=== PATIENT | male | born 1970 | race American Indian/Alaskan Native ===

== ENCOUNTER 2018-01-31 10:12 | Emergency (ER) | payer MEDICARE ==
[2018-01-31] MEDS ORDERED: ZOFRAN IV ONE (12:09)
[2018-01-31] MEDS ORDERED: PEPCID IV ONE (12:09)
[2018-01-31] MEDS ORDERED: TORADOL IV ONE (12:09)
[2018-01-31] MEDS ORDERED: BENTYL IM ONE (12:09)
[2018-01-31] MEDS ORDERED: NACL 0.9% 1000 ML 1,000 ML IV ONE ×2 (12:09→19:01)
--- NOTE | 2018-01-31 12:09 | Emergency Department Report ---
Blank Doc - Documentation Documentation: Patient is a 47-year-old Greek male with past medical history diabetes who is presenting with nausea vomiting and diarrhea for approximately 2 weeks. Patient states he has some crampy diffuse abdominal pain as well. Patient denies any blood in his vomit or stool. Patient denies fever. Patient does state he has some mild dizziness when he stands. Patient be sent treatment room for IV fluids. Labs redrawn and the patient will be sent for CT to rule out surgical conditions. To
--- NOTE | 2018-01-31 12:23 | Emergency Department Report ---
<AMADA BRADFORD - Last Filed: 01/31/18 21:58> ED Abdominal Pain HPI - General Chief Complaint: Abdominal Pain Stated Complaint: STOMACH PAIN Time Seen by Provider: 01/31/18 11:57 - Related Data Previous Rx's Medication Instructions Recorded Last Taken Type Dicyclomine [Bentyl] 20 mg PO Q8H 3 Days #12 tablet 01/31/18 Unknown Rx Famotidine [Pepcid] 20 mg PO BID 7 Days #14 tablet 01/31/18 Unknown Rx Ondansetron [Zofran Odt] 4 mg PO Q8H PRN #15 tab.rapdis 01/31/18 Unknown Rx Allergies Allergy/AdvReac Type Severity Reaction Status Date / Time No Known Allergies Allergy Unverified 01/31/18 10:19 ED Review of Systems ROS: Stated complaint: STOMACH PAIN Other details as noted in HPI ED Past Medical Hx - Medications Home Medications: Home Medications Medication Instructions Recorded Confirmed Last Taken Type Dicyclomine [Bentyl] 20 mg PO Q8H 3 Days #12 tablet 01/31/18 Unknown Rx Famotidine [Pepcid] 20 mg PO BID 7 Days #14 tablet 01/31/18 Unknown Rx Ondansetron [Zofran Odt] 4 mg PO Q8H PRN #15 tab.rapdis 01/31/18 Unknown Rx ED Course Vital Signs 01/31/18 01/31/18 01/31/18 10:20 17:04 22:00 Temperature 98 F 97.6 F Pulse Rate 112 H 67 88 Respiratory 20 16 18 Rate Blood Pressure 123/92 Blood Pressure 121/87 [Left] O2 Sat by Pulse 97 100 98 Oximetry - Reevaluation(s) Reevaluation #5: 01/31/18 21:58 Patient's labs have come back with a potassium 3.9 and a magnesium of 2.7. Patient is completed his IV fluids. Patient's vital signs are within normal limits. Will discharge patient home with follow-up to his primary care provider. Patient verbalized understanding. 01/31/18 21:58 ED Medical Decision Making - Lab Data Result diagrams: 01/31/18 12:29 01/31/18 20:36 Critical care attestation.: If time is entered above; I have spent that time in minutes in the direct care of this critically ill patient, excluding procedure time. ED Disposition Clinical Impression: Enteritis, Fatty liver, Diverticulosis of colon, Serum lipase elevation, Nausea , vomiting and diarrhea, Hyperglycemia without ketosis, Sinus tachycardia, Hyperkalemia, Hypomagnesemia Abdominal pain Qualifiers: Abdominal location: unspecified location Qualified Code(s): R10.9 - Unspecified abdominal pain Disposition: DC-01 TO HOME OR SELFCARE Condition: Stable Instructions: Diverticulosis (ED), Gastroenteritis (ED), Hyperkalemia (ED), Acute Nausea and Vomiting (ED), Acute Diarrhea (ED), Diverticulosis Diet (ED), Abdominal Pain (ED), Hypomagnesemia (ED), Nutrition Tips for Relief of Diarrhea (ED), Diabetic Hyperglycemia (ED) Additional Instructions: Please follow up with the primary care physician tomorrow Follow-up with toll operator regarding in nausea vomiting and diarrhea 2 weeks, fatty liver, diverticulosis and elevated lipase level. Over the next 72 hours, followed diet to include banana, rice, applesauce and toast Take medication as prescribed for nausea and for stomach cramping. If symptoms return, return to the emergency room NISHA Prescriptions: Dicyclomine [Bentyl] 20 mg PO Q8H 3 Days #12 tablet Famotidine [Pepcid] 20 mg PO BID 7 Days #14 tablet Ondansetron [Zofran Odt] 4 mg PO Q8H PRN #15 tab.rapdis PRN Reason: Nausea And Vomiting Referrals: PRIMARY CAREMD [Primary Care Provider] - 02/01/18 [facility] [Provider Group] - 02/02/18 [facility] [Outside] - 02/01/18 Forms: Work/School Release Form(ED) <ADOLPH FELIX - Last Filed: 02/01/18 20:18> ED Abdominal Pain HPI - General Source: patient, family, EMS Mode of arrival: Ambulatory Limitations: No Limitations - History of Present Illness Initial Comments: Patient is a 47-year-old Qat[place] male with past medical history diabetes who is presenting with nausea vomiting and diarrhea for approximately 2 weeks. Patient states he has some crampy diffuse abdominal pain as well. Patient denies any blood in his vomit or stool. Patient denies fever. Patient does state he has some mild dizziness when he stands. MD Complaint: abdominal pain Onset/Timin -: Gradual Location: diffuse Radiation: none Migration to: no migration Severity: severe Severity scale (0 -10): 7 Quality: cramping Consistency: intermittent Improves With: nothing Worsens With: nothing Context: other (unknown) Associated Symptoms: nausea, vomiting, diarrhea. denies: fever, dysuria, hematemesis, hematochezia, melena, hematuria, anorexia, syncope Treatments Prior to Arrival: other (none) ED Review of Systems Constitutional: denies: chills, fever Eyes: vision change. denies: eye pain, eye discharge ENT: denies: throat pain, congestion Respiratory: denies: cough, shortness of breath, SOB with exertion, SOB at rest , stridor, wheezing Cardiovascular: denies: chest pain, palpitations, dyspnea on exertion, edema, syncope Gastrointestinal: abdominal pain, nausea, vomiting, diarrhea. denies: constipation, hematemesis, melena, hematochezia Genitourinary: denies: urgency, dysuria, frequency, hematuria, discharge Musculoskeletal: denies: back pain, joint swelling, arthralgia Skin: denies: rash, lesions Neurological: denies: headache, weakness, numbness, paresthesias, abnormal gait , vertigo ED Past Medical Hx - Past Medical History Previous Medical History?: Yes Hx Hypertension: Yes Hx Diabetes: Yes - Surgical History Past Surgical History?: No - Family History Family history: no significant - Social History Smoking Status: Current Every Day Smoker Substance Use Type: None ED Physical Exam - General Limitations: No Limitations General appearance: alert, in no apparent distress - Head Head exam: Present: atraumatic, normocephalic, normal inspection - Eye Eye exam: Present: normal appearance, PERRL, EOMI Pupils: Present: normal accommodation - ENT ENT exam: Present: normal exam, normal orophraynx, mucous membranes moist, TM's normal bilaterally, normal external ear exam - Neck Neck exam: Present: normal inspection, full ROM. Absent: tenderness, lymphadenopathy - Respiratory Respiratory exam: Present: normal lung sounds bilaterally. Absent: respiratory distress, chest wall tenderness, accessory muscle use - Cardiovascular Cardiovascular Exam: Present: regular rate, normal rhythm. Absent: systolic murmur, diastolic murmur, rubs, gallop - GI/Abdominal GI/Abdominal exam: Present: soft, normal bowel sounds. Absent: distended, tenderness, guarding, rebound, rigid, organomegaly, mass, bruit, pulsatile mass , hernia - Extremities Exam Extremities exam: Present: normal inspection, full ROM, normal capillary refill , other (no clubbing, cyanosis or edema. +2 pulses to all extremities and no neurovascular compromise). Absent: tenderness, pedal edema, joint swelling, calf tenderness - Back Exam Back exam: Present: normal inspection, full ROM, other (ambulates without any difficulties). Absent: tenderness, CVA tenderness (R), CVA tenderness (L), muscle spasm, paraspinal tenderness, vertebral tenderness, rash noted - Neurological Exam Neurological exam: Present: alert, oriented X3, normal gait, reflexes normal. Absent: motor sensory deficit - Psychiatric Psychiatric exam: Present: normal affect, normal mood - Skin Skin exam: Present: warm, dry, intact, normal color. Absent: rash ED Course Vital Signs 01/31/18 01/31/18 01/31/18 10:20 17:04 22:00 Temperature 98 F 97.6 F Pulse Rate 112 H 67 88 Respiratory 20 16 18 Rate Blood Pressure 123/92 Blood Pressure 121/87 [Left] O2 Sat by Pulse 97 100 98 Oximetry Vital Signs 01/31/18 01/31/18 10:20 17:04 Temperature 98 F 97.6 F Pulse Rate 112 H 67 Respiratory 20 16 Rate Blood Pressure 123/92 Blood Pressure 121/87 [Left] O2 Sat by Pulse 97 100 Oximetry Vital Signs 01/31/18 01/31/18 01/31/18 10:20 17:04 22:00 Temperature 98 F 97.6 F Pulse Rate 112 H 67 88 Respiratory 20 16 18 Rate Blood Pressure 123/92 Blood Pressure 121/87 [Left] O2 Sat by Pulse 97 100 98 Oximetry - Reevaluation(s) Reevaluation #1: 01/31/18 13:49 Patient received and normal saline IV fluid 1 L, Zofran 4 mg IV and Bentyl 20 mg IM and Toradol 30 mg IV. He is also to receive regular insulin 5 units IV for blood glucose. Reevaluation #2: 01/31/18 17:06 Patient blood sugar is 258 after 5 units of regular insulin. Patient had just ate a snack prior to blood pressure being taken. He was also drinking juice. Patient reports that his abdominal pain is better and he has no nausea or vomiting. No diarrhea in emergency room. He is able to tolerate oral liquids without any difficulties. Reevaluation #3: 01/31/18 17:59 Potassium is 5.6 and receive Kayexalate and magnesium ordered Reevaluation #4: 01/31/18 19:02 Patient magnesium is 1.3 and potassium is 5.6. Kayexalate given. Patient repleted with magnesium sulfate 2 g IV infusing at present and normal saline 1 L and this will be the second liter. ED Medical Decision Making - Lab Data Result diagrams: 01/31/18 12:29 01/31/18 20:36 Lab Results 01/31/18 01/31/18 01/31/18 Range/Units 12:20 12:29 12:29 WBC 11.4 H (4.5-11.0) K/mm3 RBC 4.97 (3.65-5.03) M/mm3 Hgb 14.7 (11.8-15.2) gm/dl Hct 43.5 (35.5-45.6) % MCV 88 (84-94) fl MCH 30 (28-32) pg MCHC 34 (32-34) % RDW 13.9 (13.2-15.2) % Plt Count 195 (140-440) K/mm3 Lymph % (Auto) 20.4 (13.4-35.0) % Stephens % (Auto) 4.7 (0.0-7.3) % Eos % (Auto) 1.5 (0.0-4.3) % Baso % (Auto) 0.2 (0.0-1.8) % Lymph # 2.3 (1.2-5.4) K/mm3 Stephens # 0.5 (0.0-0.8) K/mm3 Eos # 0.2 (0.0-0.4) K/mm3 Baso # 0.0 (0.0-0.1) K/mm3 Seg Neutrophils % 73.2 H (40.0-70.0) % Seg Neutrophils # 8.3 H (1.8-7.7) K/mm3 Sodium 138 (137-145) mmol/L Potassium 5.6 H (3.6-5.0) mmol/L Chloride 103.1 (98-107) mmol/L Carbon Dioxide 20 L (22-30) mmol/L Anion Gap 21 mmol/L BUN 28 H (9-20) mg/dL Creatinine 1.2 (0.8-1.5) mg/dL Estimated GFR > 60 ml/min BUN/Creatinine Ratio 23 % Glucose 342 H (75-100) mg/dL Calcium 7.4 L (8.4-10.2) mg/dL Total Bilirubin 0.40 (0.1-1.2) mg/dL AST 23 (5-40) units/L ALT 8 (7-56) units/L Alkaline Phosphatase 82 (35-129) units/L Total Protein 5.8 L (6.3-8.2) g/dL Albumin 3.3 L (3.9-5) g/dL Albumin/Globulin Ratio 1.3 % Lipase 70 H (13-60) units/L Urine Color Yellow (Yellow) Urine Turbidity Clear (Clear) Urine pH 5.0 (5.0-7.0) Ur Specific [place] 1.014 (1.003-1.030) Urine Protein <15 mg/dl (Negative) mg/dL Urine Glucose (UA) >=500 (Negative) mg/dL Urine Ketones Neg (Negative) mg/dL Urine Blood Neg (Negative) Urine Nitrite Neg (Negative) Urine Bilirubin Neg (Negative) Urine Urobilinogen < 2.0 (<2.0) mg/dL Ur Leukocyte Esterase Neg (Negative) Urine WBC (Auto) 1.0 (0.0-6.0) /HPF Urine RBC (Auto) 2.0 (0.0-6.0) /HPF Urine Mucus Few /HPF Lab Results 01/31/18 01/31/18 01/31/18 Range/Units 12:20 12:29 12:29 WBC 11.4 H (4.5-11.0) K/mm3 RBC 4.97 (3.65-5.03) M/mm3 Hgb 14.7 (11.8-15.2) gm/dl Hct 43.5 (35.5-45.6) % MCV 88 (84-94) fl MCH 30 (28-32) pg MCHC 34 (32-34) % RDW 13.9 (13.2-15.2) % Plt Count 195 (140-440) K/mm3 Lymph % (Auto) 20.4 (13.4-35.0) % Stephens % (Auto) 4.7 (0.0-7.3) % Eos % (Auto) 1.5 (0.0-4.3) % Baso % (Auto) 0.2 (0.0-1.8) % Lymph # 2.3 (1.2-5.4) K/mm3 Stephens # 0.5 (0.0-0.8) K/mm3 Eos # 0.2 (0.0-0.4) K/mm3 Baso # 0.0 (0.0-0.1) K/mm3 Seg Neutrophils % 73.2 H (40.0-70.0) % Seg Neutrophils # 8.3 H (1.8-7.7) K/mm3 Sodium 138 (137-145) mmol/L Potassium 5.6 H (3.6-5.0) mmol/L Chloride 103.1 (98-107) mmol/L Carbon Dioxide 20 L (22-30) mmol/L Anion Gap 21 mmol/L BUN 28 H (9-20) mg/dL Creatinine 1.2 (0.8-1.5) mg/dL Estimated GFR > 60 ml/min BUN/Creatinine Ratio 23 % Glucose 342 H (75-100) mg/dL POC Glucose (70-105) Calcium 7.4 L (8.4-10.2) mg/dL Magnesium (1.7-2.3) mg/dL Total Bilirubin 0.40 (0.1-1.2) mg/dL AST 23 (5-40) units/L ALT 8 (7-56) units/L Alkaline Phosphatase 82 (35-129) units/L Total Protein 5.8 L (6.3-8.2) g/dL Albumin 3.3 L (3.9-5) g/dL Albumin/Globulin Ratio 1.3 % Lipase 70 H (13-60) units/L Urine Color Yellow (Yellow) Urine Turbidity Clear (Clear) Urine pH 5.0 (5.0-7.0) Ur Specific [place] 1.014 (1.003-1.030) Urine Protein <15 mg/dl (Negative) mg/dL Urine Glucose (UA) >=500 (Negative) mg/dL Urine Ketones Neg (Negative) mg/dL Urine Blood Neg (Negative) Urine Nitrite Neg (Negative) Urine Bilirubin Neg (Negative) Urine Urobilinogen < 2.0 (<2.0) mg/dL Ur Leukocyte Esterase Neg (Negative) Urine WBC (Auto) 1.0 (0.0-6.0) /HPF Urine RBC (Auto) 2.0 (0.0-6.0) /HPF Urine Mucus Few /HPF 01/31/18 01/31/18 01/31/18 Range/Units 14:38 17:04 17:43 WBC (4.5-11.0) K/mm3 RBC (3.65-5.03) M/mm3 Hgb (11.8-15.2) gm/dl Hct (35.5-45.6) % MCV (84-94) fl MCH (28-32) pg MCHC (32-34) % RDW (13.2-15.2) % Plt Count (140-440) K/mm3 Lymph % (Auto) (13.4-35.0) % Stephens % (Auto) (0.0-7.3) % Eos % (Auto) (0.0-4.3) % Baso % (Auto) (0.0-1.8) % Lymph # (1.2-5.4) K/mm3 Stephens # (0.0-0.8) K/mm3 Eos # (0.0-0.4) K/mm3 Baso # (0.0-0.1) K/mm3 Seg Neutrophils % (40.0-70.0) % Seg Neutrophils # (1.8-7.7) K/mm3 Sodium (137-145) mmol/L Potassium (3.6-5.0) mmol/L Chloride (98-107) mmol/L Carbon Dioxide (22-30) mmol/L Anion Gap mmol/L BUN (9-20) mg/dL Creatinine (0.8-1.5) mg/dL Estimated GFR ml/min BUN/Creatinine Ratio % Glucose (75-100) mg/dL POC Glucose 392 H 258 H (70-105) Calcium (8.4-10.2) mg/dL Magnesium 1.30 L (1.7-2.3) mg/dL Total Bilirubin (0.1-1.2) mg/dL AST (5-40) units/L ALT (7-56) units/L Alkaline Phosphatase (35-129) units/L Total Protein (6.3-8.2) g/dL Albumin (3.9-5) g/dL Albumin/Globulin Ratio % Lipase (13-60) units/L Urine Color (Yellow) Urine Turbidity (Clear) Urine pH (5.0-7.0) Ur Specific [place] (1.003-1.030) Urine Protein (Negative) mg/dL Urine Glucose (UA) (Negative) mg/dL Urine Ketones (Negative) mg/dL Urine Blood (Negative) Urine Nitrite (Negative) Urine Bilirubin (Negative) Urine Urobilinogen (<2.0) mg/dL Ur Leukocyte Esterase (Negative) Urine WBC (Auto) (0.0-6.0) /HPF Urine RBC (Auto) (0.0-6.0) /HPF Urine Mucus /HPF 01/31/18 Range/Units 20:36 WBC (4.5-11.0) K/mm3 RBC (3.65-5.03) M/mm3 Hgb (11.8-15.2) gm/dl Hct (35.5-45.6) % MCV (84-94) fl MCH (28-32) pg MCHC (32-34) % RDW (13.2-15.2) % Plt Count (140-440) K/mm3 Lymph % (Auto) (13.4-35.0) % Stephens % (Auto) (0.0-7.3) % Eos % (Auto) (0.0-4.3) % Baso % (Auto) (0.0-1.8) % Lymph # (1.2-5.4) K/mm3 Stephens # (0.0-0.8) K/mm3 Eos # (0.0-0.4) K/mm3 Baso # (0.0-0.1) K/mm3 Seg Neutrophils % (40.0-70.0) % Seg Neutrophils # (1.8-7.7) K/mm3 Sodium (137-145) mmol/L Potassium 3.9 D (3.6-5.0) mmol/L Chloride (98-107) mmol/L Carbon Dioxide (22-30) mmol/L Anion Gap mmol/L BUN (9-20) mg/dL Creatinine (0.8-1.5) mg/dL Estimated GFR ml/min BUN/Creatinine Ratio % Glucose (75-100) mg/dL POC Glucose (70-105) Calcium (8.4-10.2) mg/dL Magnesium 2.20 (1.7-2.3) mg/dL Total Bilirubin (0.1-1.2) mg/dL AST (5-40) units/L ALT (7-56) units/L Alkaline Phosphatase (35-129) units/L Total Protein (6.3-8.2) g/dL Albumin (3.9-5) g/dL Albumin/Globulin Ratio % Lipase (13-60) units/L Urine Color (Yellow) Urine Turbidity (Clear) Urine pH (5.0-7.0) Ur Specific [place] (1.003-1.030) Urine Protein (Negative) mg/dL Urine Glucose (UA) (Negative) mg/dL Urine Ketones (Negative) mg/dL Urine Blood (Negative) Urine Nitrite (Negative) Urine Bilirubin (Negative) Urine Urobilinogen (<2.0) mg/dL Ur Leukocyte Esterase (Negative) Urine WBC (Auto) (0.0-6.0) /HPF Urine RBC (Auto) (0.0-6.0) /HPF Urine Mucus /HPF - EKG Data -: EKG Interpreted by Me (attending physician) EKG shows normal: sinus rhythm Rate: normal (90 bpm) - EKG Data When compared to previous EKG there are: no significant change Interpretation: no acute changes, normal EKG - Radiology Data Radiology results: report reviewed CT scan of the abdomen and pelvis with IV contrast dictated by radiologist and report reviewed by myself. Shows diverticulosis, fatty liver and enteritis Patient: LAURA ABDI MR#: [id number] : 1970 Acct:[id number] Age/Sex: 47 / M ADM Date: 01/31/18 Loc: ED Attending Dr: Ordering Physician: SINGH TEJEDA MD Date of Service: 01/31/18 Procedure(s): CT abdomen pelvis w con Accession Number(s): [id number] cc: SINGH TEJEDA MD FINAL REPORT EXAM: CT ABDOMEN PELVIS W CON HISTORY: diffuse abd pain NVD TECHNIQUE: Spiral CT scanning of the abdomen and pelvis after the uneventful administration of IV contrast. Multiplanar reformations. 100 mL Omnipaque IV. PRIORS: None. FINDINGS: Abdomen: Visualized lung bases grossly unremarkable. No radiopaque gallstones. Liver shows diffusely decreased attenuation without focal abnormality. Spleen without significant abnormality. Pancreas without significant abnormality. Kidneys without significant abnormality. Right adrenal gland without significant abnormality. Left adrenal nodule measuring approximately 1 cm compatible with adenomatous change. Pelvis: Multiple loops of prominent small bowel containing gas and fluid without discrete transition point. Mild diverticular change scattered in the colon. Remainder of bowel grossly unremarkable. Appendix within normal limits. No significant free peritoneal fluid, discrete abscess or apparent adenopathy. Aortoiliac calcification without aneurysmal dilatation. Degenerative change in the lumbar spine. IMPRESSION: 1. Nonspecific bowel gas pattern suggesting adynamic ileus, which may be associated with nonspecific postinflammatory change, including enteritis. Correlate clinically. 2. Diverticulosis. 3. Findings compatible with fatty infiltration in the liver. Transcribed By: [facility] Dictated By: MARIYA DE LA GARZA MD Electronically Authenticated By: MARIYA DE LA GARZA MD Signed Date/Time: 01/31/181644 DD/ 44 TD/TT: 01/31/181644 - Medical Decision Making This is a 47-year-old male screened by Dr. Singh Tejeda. Here for abdominal pain, nausea vomiting and diarrhea over 2 weeks. An here to be evaluated. Patient was screened by Dr. Tejeda in seen and examined by myself. His abdomen is nontender to palpate at present. CT scan of the abdomen and pelvis with IV contrast dictated by radiologist and reports reviewed by myself. Shows 1. Nonspecific bowel gas pattern suggesting adynamic ileus, whichmay be associated with nonspecific postinflammatory change, including enteritis. Correlate clinically. 2. Diverticulosis. 3. Findings compatible with fatty infiltration in the liver. EKG sinus rhythm at 90 without any acute findings, CBC is stable , CMP with potassium of 5.6 and was corrected with 30 gram of Kayexalate was brought potassium to 3.9 which is stable. Magnesium was 1.3 and he received magnesium sulfate 2 g and now his magnesium is 2.1. Urinalysis is stable. I discussed lab results and CT scan results with patient and he voiced understanding of results. A/P 1: Abdominal pain-patient received Pepcid 20 mg IV, Toradol 30 mg IV and Bentyl 20 mg IM which was ordered by Dr. Tejeda and his pain is relieved. Will discharge home on Bentyl 2: Fatty liver-patient will be referred to toll operator 3: Hyperkalemia-potassium 5.6 and patient received Kayexalate 30 g by mouth times one dose with positive results of bowel movement and recheck in potassium was 3.9 which is normal 4: Low magnesium-magnesium of 1.3 and patient receive magnesium sulfate 2 g IV 1 dose and her magnesium is at 2.1. 5: Nausea vomiting and diarrhea-patient received 2 L of normal saline during her ED stay, Zofran 4 mg IV and nausea vomiting is relieved. No episode of diarrhea when in emergency room. Will discharge home and Zofran 6: Hyperglycemia in patient with diabetes-blood sugar better with IV fluid and 5 units of insulin IV. 7: Diverticulosis without bleeding-patient given information on diverticulosis diet And referred to ENDS [facility]ER 8: Enteritis-educated on Brat diet and to utilize this for 72 hours 9-tachycardia at 112-heart rate is stabilized and EKG is sinus rhythm at 90 without any acute findings Patient given discharge education medication, diverticulosis diet diagnosis, laboratory and diagnostic studies findings and need to follow-up. He voiced understanding. Condition discharged home in stable condition with prescription for Zofran, Pepcid and Bentyl and to follow up with toll operator and primary care physician in one to 2 days. His vital signs are stable and he is afebrile. Patient studies feeling better and he is nontoxic in appearance. I discussed with him if his symptoms return to return to the emergency room immediately otherwise to follow-up. He voiced understanding and discharged home in stable condition - Differential Diagnosis pancreatitis, colitis, GBD, liver disease, appencitis, enteritis, ED Disposition Is pt being admited?: No Does the pt Need Aspirin: No
[2018-01-31 12:32] LABS: Bilirubin,Urine NEG (Negative); Blood,Urine NEG (Negative); Color,Urine Yellow (Yellow); Mucus,Urine FEW /HPF; Protein,Urine <15 mg/dL mg/dL (Negative); Urobilinogen,Urine < 2.0 mg/dL (<2.0)
[2018-01-31 13:05] LABS: Basophils % (Auto) 0.2 % (0.0-1.8); Eosinophils # (Auto) 0.2 K/mm3 (0.0-0.4); Eosinophils % (Auto) 1.5 % (0.0-4.3); Hematocrit 43.5 % (35.5-45.6); Hemoglobin 14.7 gm/dl (11.8-15.2); Lymphocytes # (Auto) 2.3 K/mm3 (1.2-5.4); Lymphocytes % (Auto) 20.4 % (13.4-35.0); Mean Corpuscular HGB Conc 34 % (32-34); Mean Corpuscular Hemoglobin 30 pg (28-32); Mean Corpuscular Volume 88 fl (84-94); Monocytes # (Auto) 0.5 K/mm3 (0.0-0.8); Monocytes % (Auto) 4.7 % (0.0-7.3); Platelet Count 195 K/mm3 (140-440); Red Blood Count 4.97 M/mm3 (3.65-5.03); Red Cell Distribution Width 13.9 % (13.2-15.2)
[2018-01-31 13:14] LABS: Albumin 3.3 g/dL (3.9-5); BUN/Creatinine Ratio 23; Blood Urea Nitrogen 28 mg/dL (9-20); Calcium 7.4 mg/dL (8.4-10.2); Hemolysis Index 339; Lipase 70 units/L (13-60)
[2018-01-31 13:28] LABS: Alanine Aminotransferase 8 units/L (7-56)
[2018-01-31] MEDS ORDERED: HumuLIN R IV ONE (13:48)
--- NOTE | 2018-01-31 16:49 | Cat Scan Report ---
FINAL REPORT EXAM: CT ABDOMEN PELVIS W CON HISTORY: diffuse abd pain NVD TECHNIQUE: Spiral CT scanning of the abdomen and pelvis after the uneventful administration of IV contrast. Multiplanar reformations. 100 mL Omnipaque IV. PRIORS: None. FINDINGS: Abdomen: Visualized lung bases grossly unremarkable. No radiopaque gallstones. Liver shows diffusely decreased attenuation without focal abnormality. Spleen without significant abnormality. Pancreas without significant abnormality. Kidneys without significant abnormality. Right adrenal gland without significant abnormality. Left adrenal nodule measuring approximately 1 cm compatible with adenomatous change. Pelvis: Multiple loops of prominent small bowel containing gas and fluid without discrete transition point. Mild diverticular change scattered in the colon. Remainder of bowel grossly unremarkable. Appendix within normal limits. No significant free peritoneal fluid, discrete abscess or apparent adenopathy. Aortoiliac calcification without aneurysmal dilatation. Degenerative change in the lumbar spine. IMPRESSION: 1. Nonspecific bowel gas pattern suggesting adynamic ileus, which may be associated with nonspecific postinflammatory change, including enteritis. Correlate clinically. 2. Diverticulosis. 3. Findings compatible with fatty infiltration in the liver.
[2018-01-31 17:05] VITALS: BP 121/87
[2018-01-31] MEDS ORDERED: KIONEX PO ONE (17:24)
[2018-01-31] MEDS ORDERED: MAGNESIUM SULFATE 2GM/50ML 2 GM/50 ML BAG IV ONE (19:01)
== END 2018-01-31 22:00 | disposition home or self-care (01) ==
LOC: ED 10:12
DX: K57.92 Diverticulitis of intestine, part unspecified, without perforation or abscess without bleeding (principal); E87.5 Hyperkalemia; E83.42 Hypomagnesemia; K52.9 Noninfective gastroenteritis and colitis, unspecified; I10 Essential (primary) hypertension; E11.65 Type 2 diabetes mellitus with hyperglycemia; R00.0 Tachycardia, unspecified; F17.200 Nicotine dependence, unspecified, uncomplicated; Z79.4 Long term (current) use of insulin
CPT/HCPCS: 36415; 74177; 80053; 81001; 82962; 83690; 83735; 84132; 85025; 96361; 96365; 96372; 96375; 99284; J0500; J1885; J2405; J3475; J7030; Q9967; J1815

== ENCOUNTER 2019-03-13 17:11 | Emergency (ER) | payer MEDICARE ==
--- NOTE | 2019-03-13 18:05 | Event Note ---
ED Screening Note Date of service: 03/13/19 Time: 18:03 ED Screening Note: This is a 48 y.o. M. that presents to the ER with dental pain and BLE cramps for 3 days. PMH of DM, HTN, and chronic back pain. This initial assessment/diagnostic orders/clinical plan/treatment(s) is/are subject to change based on patients health status, clinical progression and re- assessment by fellow clinical providers in the ED. Further treatment and workup at subsequent clinical providers discretion. Patient/guardian urged not to elope from the ED as their condition may be serious if not clinically assessed and managed. Initial orders include: Labs
[2019-03-13 19:09] LABS: Hematocrit 45.3 % (35.5-45.6); Hemoglobin 15.2 gm/dl (11.8-15.2); Mean Corpuscular HGB Conc 34 % (32-34); Mean Corpuscular Volume 88 fl (84-94); Platelet Count 241 K/mm3 (140-440); Red Blood Count 5.14 M/mm3 (3.65-5.03); Red Cell Distribution Width 14.8 % (13.2-15.2)
[2019-03-13 20:01] LABS: Alanine Aminotransferase 15 units/L (7-56); Albumin 4.2 g/dL (3.9-5); BUN/Creatinine Ratio 14; Blood Urea Nitrogen 18 mg/dL (9-20); Calcium 9.1 mg/dL (8.4-10.2); Hemolysis Index 10
[2019-03-13] MEDS ORDERED: TRIMOX PO ONE (20:50)
[2019-03-13] MEDS ORDERED: NORCO 5/325 PO ONE (20:50)
--- NOTE | 2019-03-13 21:26 | Emergency Department Report ---
ED ENT HPI - General Chief complaint: Dental/Oral Stated complaint: SORE MOUTH Time Seen by Provider: 03/13/19 18:03 Source: patient Mode of arrival: Ambulatory Limitations: No Limitations - History of Present Illness Initial comments: This is a 48 y.o. M. that presents to the ER with dental pain 5/10 aching x 1 week hx of same recurring over past yr. PMH of DM, HTN, and chronic back pain. MD complaint: tooth pain Onset/Timin -: week(s) Location: tooth # (3) Severity: moderate Severity scale (0 -10): 3 Quality: aching Consistency: constant Improves with: none Worsens with: eating Context- Dental: history of dental caries, poor dental care Associated Symptoms: gum swelling, toothache. denies: sore throat, tinnitus, discharge from ear, rhinorrhea - Related Data Previous Rx's Medication Instructions Recorded Last Taken Type Dicyclomine [Bentyl] 20 mg PO Q8H 3 Days #12 tablet 01/31/18 Unknown Rx Famotidine [Pepcid] 20 mg PO BID 7 Days #14 tablet 01/31/18 Unknown Rx Ondansetron [Zofran Odt] 4 mg PO Q8H PRN #15 tab.rapdis 01/31/18 Unknown Rx Amoxicillin [Trimox CAP] 500 mg PO Q8H 10 Days #30 capsule 03/13/19 Unknown Rx Chlorhexidine Mouthwash [Peridex] 15 ml MM BID #1 bottle 03/13/19 Unknown Rx traMADol [Ultram] 50 mg PO Q6HR PRN #12 tablet 03/13/19 Unknown Rx Allergies Allergy/AdvReac Type Severity Reaction Status Date / Time No Known Allergies Allergy Unverified 01/31/18 10:19 ED Dental HPI - General Chief complaint: Dental/Oral Stated complaint: SORE MOUTH Time Seen by Provider: 03/13/19 18:03 Source: patient Mode of arrival: Ambulatory Limitations: No Limitations - Related Data Previous Rx's Medication Instructions Recorded Last Taken Type Dicyclomine [Bentyl] 20 mg PO Q8H 3 Days #12 tablet 01/31/18 Unknown Rx Famotidine [Pepcid] 20 mg PO BID 7 Days #14 tablet 01/31/18 Unknown Rx Ondansetron [Zofran Odt] 4 mg PO Q8H PRN #15 tab.rapdis 01/31/18 Unknown Rx Amoxicillin [Trimox CAP] 500 mg PO Q8H 10 Days #30 capsule 03/13/19 Unknown Rx Chlorhexidine Mouthwash [Peridex] 15 ml MM BID #1 bottle 03/13/19 Unknown Rx traMADol [Ultram] 50 mg PO Q6HR PRN #12 tablet 03/13/19 Unknown Rx Allergies Allergy/AdvReac Type Severity Reaction Status Date / Time No Known Allergies Allergy Unverified 01/31/18 10:19 ED Review of Systems ROS: Stated complaint: SORE MOUTH Other details as noted in HPI Constitutional: denies: chills, fever Eyes: denies: eye pain, eye discharge, vision change ENT: dental pain. denies: ear pain, throat pain, hearing loss, epistaxis, congestion Respiratory: denies: cough, shortness of breath, wheezing Cardiovascular: denies: chest pain, palpitations Endocrine: no symptoms reported Gastrointestinal: denies: abdominal pain, nausea, diarrhea Genitourinary: denies: urgency, dysuria Musculoskeletal: denies: back pain, joint swelling, arthralgia Skin: denies: rash, lesions Neurological: denies: headache, weakness, paresthesias Psychiatric: denies: anxiety, depression Hematological/Lymphatic: denies: easy bleeding, easy bruising ED Past Medical Hx - Past Medical History Previous Medical History?: Yes Hx Hypertension: Yes Hx Diabetes: Yes - Surgical History Past Surgical History?: No - Social History Smoking Status: Current Every Day Smoker Substance Use Type: None - Medications Home Medications: Home Medications Medication Instructions Recorded Confirmed Last Taken Type Dicyclomine [Bentyl] 20 mg PO Q8H 3 Days #12 tablet 01/31/18 Unknown Rx Famotidine [Pepcid] 20 mg PO BID 7 Days #14 tablet 01/31/18 Unknown Rx Ondansetron [Zofran Odt] 4 mg PO Q8H PRN #15 tab.rapdis 01/31/18 Unknown Rx Amoxicillin [Trimox CAP] 500 mg PO Q8H 10 Days #30 capsule 03/13/19 Unknown Rx Chlorhexidine Mouthwash [Peridex] 15 ml MM BID #1 bottle 03/13/19 Unknown Rx traMADol [Ultram] 50 mg PO Q6HR PRN #12 tablet 03/13/19 Unknown Rx ED Physical Exam - General Limitations: No Limitations General appearance: alert, in no apparent distress - Head Head exam: Present: atraumatic, normocephalic - Eye Eye exam: Present: normal appearance, PERRL Pupils: Present: normal accommodation - ENT ENT exam: Present: mucous membranes moist, TM's normal bilaterally, normal external ear exam - Expanded ENT Exam Expanded Ear exam: Present: normal external inspection Teeth exam: Present: dental caries, dental tenderness # (3) Throat exam: Positive: normal inspection, other (uvula midline no swelling no exudate no lesions no stridor ). Negative: tonsillar erythema, tonsillomegaly, tonsillar exudate, R peritonsillar mass, L peritonsillar mass - Neck Neck exam: Present: normal inspection - Respiratory Respiratory exam: Present: normal lung sounds bilaterally. Absent: respiratory distress, wheezes, stridor, chest wall tenderness - Cardiovascular Cardiovascular Exam: Present: regular rate, normal rhythm, normal heart sounds. Absent: systolic murmur, diastolic murmur, rubs, gallop - GI/Abdominal GI/Abdominal exam: Present: soft, normal bowel sounds. Absent: distended, tenderness, guarding, rebound, rigid, bruit, hernia - Rectal Rectal exam: Present: deferred - Extremities Exam Extremities exam: Present: normal inspection, full ROM, normal capillary refill. Absent: tenderness, pedal edema, joint swelling, calf tenderness - Back Exam Back exam: Present: normal inspection, full ROM. Absent: tenderness, CVA tenderness (R), CVA tenderness (L), muscle spasm, paraspinal tenderness, rash noted - Neurological Exam Neurological exam: Present: alert, oriented X3, CN II-XII intact, normal gait, reflexes normal. Absent: motor sensory deficit - Psychiatric Psychiatric exam: Present: normal affect, normal mood - Skin Skin exam: Present: warm, dry, intact, normal color. Absent: rash ED Course Vital Signs 03/13/19 17:58 Temperature 98.3 F Pulse Rate 112 H Respiratory 20 Rate Blood Pressure 122/81 O2 Sat by Pulse 98 Oximetry ED Medical Decision Making - Lab Data Result diagrams: 03/13/19 18:51 03/13/19 18:51 Lab Results 03/13/19 03/13/19 Range/Units 18:51 18:51 WBC 11.7 H (4.5-11.0) K/mm3 RBC 5.14 H (3.65-5.03) M/mm3 Hgb 15.2 (11.8-15.2) gm/dl Hct 45.3 (35.5-45.6) % MCV 88 (84-94) fl MCH 30 (28-32) pg MCHC 34 (32-34) % RDW 14.8 (13.2-15.2) % Plt Count 241 (140-440) K/mm3 Sodium 140 (137-145) mmol/L Potassium 4.3 (3.6-5.0) mmol/L Chloride 101.4 (98-107) mmol/L Carbon Dioxide 22 (22-30) mmol/L Anion Gap 21 mmol/L BUN 18 (9-20) mg/dL Creatinine 1.3 (0.8-1.5) mg/dL Estimated GFR > 60 ml/min BUN/Creatinine Ratio 14 % Glucose 180 H (75-100) mg/dL Calcium 9.1 (8.4-10.2) mg/dL Total Bilirubin 0.30 (0.1-1.2) mg/dL AST 17 (5-40) units/L ALT 15 (7-56) units/L Alkaline Phosphatase 84 (35-129) units/L Total Protein 7.2 (6.3-8.2) g/dL Albumin 4.2 (3.9-5) g/dL Albumin/Globulin Ratio 1.4 % - Medical Decision Making this is infected dental carries plan: amoxicillin, ultram, peridex, follow up with dentist in 2-3 days return to ed if symptoms worsen. Critical care attestation.: If time is entered above; I have spent that time in minutes in the direct care of this critically ill patient, excluding procedure time. ED Disposition Clinical Impression: Infected dental caries Disposition: DC-01 TO HOME OR SELFCARE Is pt being admited?: No Does the pt Need Aspirin: No Condition: Stable Instructions: Dental Caries (ED) Prescriptions: Chlorhexidine Mouthwash [Peridex] 15 ml MM BID #1 bottle Amoxicillin [Trimox CAP] 500 mg PO Q8H 10 Days #30 capsule traMADol [Ultram] 50 mg PO Q6HR PRN #12 tablet PRN Reason: Pain Referrals: SIN CASTILLO MD [Primary Care Provider] - 3-5 Days [facility] [Outside] - 3-5 Days Forms: Work/School Release Form(ED) Time of Disposition: 21:29
[2019-03-13 21:50] VITALS: BP 119/80
== END 2019-03-13 21:49 | disposition home or self-care (01) ==
LOC: ED 17:11
DX: K04.7 Periapical abscess without sinus (principal); K02.9 Dental caries, unspecified; I10 Essential (primary) hypertension; E11.9 Type 2 diabetes mellitus without complications; G89.29 Other chronic pain; M54.9 Dorsalgia, unspecified; F17.200 Nicotine dependence, unspecified, uncomplicated; Z79.899 Other long term (current) drug therapy
CPT/HCPCS: 36415; 80053; 85027; 99283

== ENCOUNTER 2019-05-15 15:51 | Emergency (ER) | payer MEDICARE, OTHER ==
[2019-05-15 15:58] VITALS: BP 144/96
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
== END 2019-05-15 19:42 | disposition home or self-care (01) ==
LOC: ED 15:51
DX: S46.912A Strain of unspecified muscle, fascia and tendon at shoulder and upper arm level, left arm, initial encounter (principal); I10 Essential (primary) hypertension; E11.9 Type 2 diabetes mellitus without complications; F17.200 Nicotine dependence, unspecified, uncomplicated; Z79.899 Other long term (current) drug therapy; V89.2XXA Person injured in unspecified motor-vehicle accident, traffic, initial encounter; Y93.89 Activity, other specified; Y92.488 Other paved roadways as the place of occurrence of the external cause; Y99.8 Other external cause status
CPT/HCPCS: 99282

== ENCOUNTER 2019-12-10 12:29 | Emergency (ER) | payer MEDICARE ==
[2019-12-10] MEDS ORDERED: SODIUM CHLORIDE 0.9% IRR 500 ML BOTTLE IR ONE (12:57)
[2019-12-10] MEDS ORDERED: NEOMY 3.5 MG/BACIT 400 UNITS/POLY B 5000 UNITS/GM OINT PACKET TP ONE (12:57)
[2019-12-10] MEDS ORDERED: ACETAMINOPHEN 325 MG TAB PO ONE (12:57)
[2019-12-10] MEDS ORDERED: DIPHtheria,PERTUSSIS(ACELL),TETANUS VACCINE/PF 0.5 ML VIAL IM ONE (12:57)
[2019-12-10] MEDS ORDERED: LIDOCAINE (1%) 10 MG/1 ML VIAL 20 ML MDV INFILTRATI ONE (12:57)
--- NOTE | 2019-12-10 12:57 | Event Note ---
ED Screening Note ED Screening Note: LAC LEFT ARM WHILE CUTTING WATERMELON NO BLOOD THINNERS DISTAL N/V INTACT This initial assessment/diagnostic orders/clinical plan/treatment(s) is/are subject to change based on patients health status, clinical progression and re- assessment by fellow clinical providers in the ED. Further treatment and workup at subsequent clinical providers discretion. Patient/guardian urged not to elope from the ED as their condition may be serious if not clinically assessed and managed. Initial orders include: WOUND REPAIR TDAP
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
[2019-12-10] MEDS ORDERED: SODIUM CHLORIDE 0.9% 1000 ML 1,000 ML ONE (14:24)
[2019-12-10] MEDS ORDERED: SODIUM CHLORIDE 0.9% 1000 ML 1,000 ML IV ONE (14:29)
[2019-12-10] MEDS ORDERED: cefTRIAXone/NS 1 GM/50 ML 1 GM/50 ML BAG IV ONE (14:50)
[2019-12-10 15:38] VITALS: BP 164/88
== END 2019-12-10 16:34 | disposition home or self-care (01) ==
LOC: ED 12:29
DX: S41.112A Laceration without foreign body of left upper arm, initial encounter (principal); I10 Essential (primary) hypertension; E11.9 Type 2 diabetes mellitus without complications; F17.200 Nicotine dependence, unspecified, uncomplicated; W45.8XXA Other foreign body or object entering through skin, initial encounter; Y93.89 Activity, other specified; Y92.89 Other specified places as the place of occurrence of the external cause; Y99.8 Other external cause status
CPT/HCPCS: 12002; 90471; 90715; 96365; 99283; J0696; J7030; A6250

== ENCOUNTER 2019-12-20 10:33 | Emergency (ER) | payer MEDICARE ==
--- NOTE | 2019-12-20 11:24 | Emergency Department Report ---
Suture/Staple Removal - [facility] Chief Complaint: Laceration/Recheck/Suture Stated Complaint: LFT ARM STITCHS REMOVED Time Seen by Provider: 12/20/19 11:16 When Sutures or [place] Placed: 12/10/2019 Wound Location: left forearm ED Review of Systems ROS: Stated complaint: LFT ARM STITCHS REMOVED Other details as noted in HPI Comment: All other systems reviewed and negative ED Past Medical Hx - Past Medical History Previous Medical History?: Yes Hx Hypertension: Yes Hx Diabetes: Yes - Surgical History Past Surgical History?: No - Social History Smoking Status: Current Every Day Smoker Substance Use Type: None - Medications Home Medications: Home Medications Medication Instructions Recorded Confirmed Last Taken Type Famotidine [Pepcid] 20 mg PO BID 7 Days #14 tablet 01/31/18 Unknown Rx Amoxicillin [Trimox CAP] 500 mg PO BID #20 capsule 12/10/19 Unknown Rx traMADoL [Ultram] 50 mg PO Q6HR PRN #12 tablet 12/10/19 Unknown Rx Suture Removal Exam - Exam General: Vital signs noted. No distress. Alert and acting appropriately. Wound: No Pathologic Erythema, No Tenderness, No Drainage, No Pus, No Wound Dehiscence Other Systems: All other systems reviewed and are unremarkable. ED Course Vital Signs 12/20/19 10:50 Temperature 98.3 F Pulse Rate 101 H Respiratory 20 Rate Blood Pressure 170/89 O2 Sat by Pulse 99 Oximetry ED Recheck MDM - Medical Decision Making wound appears clean, dry intact, no signs of infection. all sutures removed without difficulty, no wound dehiscence, no bleeding, no complications, pt tolerated well VSS advised pt please keep area clean, dry, covered. may wash with soap and water and immediately dry twice a day. may use neosporin or triple antibiotic ointment. follow up with a primary care doctor. return to the emergency room for any new or worsening symptoms. Critical care attestation.: If time is entered above; I have spent that time in minutes in the direct care of this critically ill patient, excluding procedure time. ED Disposition Clinical Impression: Visit for suture removal Disposition: - TO HOME OR SELFCARE Is pt being admited?: No Does the pt Need Aspirin: No Condition: Stable Instructions: Suture Removal (ED), Acute Wound Care (ED) Additional Instructions: please keep area clean, dry, covered. may wash with soap and water and immediately dry twice a day. may use neosporin or triple antibiotic ointment. follow up with a primary care doctor. return to the emergency room for any new or worsening symptoms. Referrals: BEHZAD STINSON MD [Staff Physician] - 3-5 Days [facility] [Provider Group] - 3-5 Days Time of Disposition: 11:25 Print Language: CZECH
[2019-12-20 11:31] VITALS: BP 160/97
== END 2019-12-20 11:30 | disposition home or self-care (01) ==
LOC: ED 10:33
DX: Z48.01 Encounter for change or removal of surgical wound dressing (principal); I10 Essential (primary) hypertension; E11.9 Type 2 diabetes mellitus without complications; F17.200 Nicotine dependence, unspecified, uncomplicated; Z79.899 Other long term (current) drug therapy

== ENCOUNTER 2019-12-21 17:27 | Emergency (ER) | payer MEDICARE ==
--- NOTE | 2019-12-21 19:08 | Emergency Department Report ---
Chief Complaint: Laceration/Recheck/Suture Stated Complaint: SUTURE RECHECK/LFT ARM Time Seen by Provider: 12/21/19 18:47 - HPI History of Present Illness: This is a 49-year-old male presents to the ED complaining of an open wound to his left lower arm. Patient states that he was seen yesterday and had his sutures removed patient states when he got home today he noticed that the wound was opened back up and was bleeding. Patient states he covered it up and brought came to the ED. He denies any other symptoms no fever no erythema around the wound - ROS Review of Systems: As noted in HPI - Exam Vital Signs: Vital Signs 12/21/19 17:32 Temperature 97.7 F Pulse Rate 105 H Respiratory 13 Rate Blood Pressure 155/100 O2 Sat by Pulse 100 Oximetry Physical Exam: GENERAL: Alert and oriented x3, no apparent distress, Normal Gait, atraumatic. HEAD: Head is normocephalic and a-traumatic. SKIN: Warm and dry, No lesions, No ulceration or induration present. 3 cm open wound healing laceration mild blood noted but no excessive bleeding. Bleeding was controlled. MSE screening note: Focused history and physical exam performed. Due to findings the following was ordered: ED Medical Decision Making - Medical Decision Making 49-year-old male presenting for a wound check of his wound after removal of stitches. Wound was cleaned and Steri-Strips placed to close wound. Patient tolerated procedure well. Vital signs are normal patient is in no acute distress ED Disposition for MSE Clinical Impression: Encounter for re-check of laceration wound Is pt being admited?: No Does the pt Need Aspirin: No Condition: Stable Instructions: Acute Wound Care (ED) Additional Instructions: Make sure to follow up with the primary care physician as discussed. If you have any worsening symptoms or develop new symptoms please return to ED immediately. Referrals: SIN CASTILLO MD [Primary Care Provider] - 3-5 Days Forms: Accompanied Note, Work/School Release Form(ED) Time of Disposition: 19:10
[2019-12-24 12:06] VITALS: BP 148/99
== END 2019-12-21 19:43 | disposition home or self-care (01) ==
LOC: ED 17:27
DX: S51.812D Laceration without foreign body of left forearm, subsequent encounter (principal); Z48.00 Encounter for change or removal of nonsurgical wound dressing; X58.XXXD Exposure to other specified factors, subsequent encounter

== ENCOUNTER 2020-08-04 14:08 | Emergency (ER) | payer MEDICARE ==
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
[2020-08-04 18:37] LABS: Basophils # (Auto) 0.1 K/mm3 (0.0-0.1); Basophils % (Auto) 1.2 % (0.0-1.8); Eosinophils # (Auto) 0.1 K/mm3 (0.0-0.4); Eosinophils % (Auto) 1.7 % (0.0-4.3); Hematocrit 44.3 % (35.5-45.6); Hemoglobin 15.2 gm/dl (11.8-15.2); Lymphocytes # (Auto) 2.7 K/mm3 (1.2-5.4); Lymphocytes % (Auto) 30.9 % (13.4-35.0); Mean Corpuscular HGB Conc 34 % (32-34); Mean Corpuscular Volume 88 fl (84-94); Monocytes # (Auto) 0.5 K/mm3 (0.0-0.8); Monocytes % (Auto) 5.5 % (0.0-7.3); Platelet Count 216 K/mm3 (140-440); Red Blood Count 5.03 M/mm3 (3.65-5.03); Red Cell Distribution Width 13.4 % (13.2-15.2)
[2020-08-04 18:40] LABS: Bilirubin,Urine NEG (Negative); Blood,Urine NEG (Negative); Color,Urine Yellow (Yellow); Mucus,Urine FEW /HPF; Protein,Urine <15 mg/dL mg/dL (Negative)
[2020-08-04 18:54] LABS: Alanine Aminotransferase 13 units/L (7-56); Albumin 3.8 g/dL (3.9-5); BUN/Creatinine Ratio 16; Blood Urea Nitrogen 18 mg/dL (9-20); Calcium 9.3 mg/dL (8.4-10.2); Hemolysis Index 14
[2020-08-04] MEDS ORDERED: traMADol 50 MG TAB PO ONE (23:44)
--- NOTE | 2020-08-04 23:52 | Emergency Department Report ---
ED Back Pain/Injury HPI - General Chief Complaint: Back Pain/Injury Stated Complaint: BACK PAIN Time Seen by Provider: 08/04/20 23:42 Source: patient Limitations: No Limitations - History of Present Illness Initial Comments: This 49-year-old male presents with back and bilat flank pain times 2 days. Patient states he is not chronic back pain but has hx or herniatead lumbar disc. Denies fall injury or trauma,fall, or injury. there is no loss or decrease in bowel or bladder function. MD Complaint: back pain Similar Symptoms Previously: Yes - Related Data Previous Rx's Medication Instructions Recorded Last Taken Type Famotidine [Pepcid] 20 mg PO BID 7 Days #14 tablet 01/31/18 Unknown Rx Amoxicillin [Trimox CAP] 500 mg PO BID #20 capsule 12/10/19 Unknown Rx traMADoL [Ultram] 50 mg PO Q6HR PRN #12 tablet 12/10/19 Unknown Rx Cyclobenzaprine [Flexeril] 10 mg PO TID PRN #30 tablet 08/04/20 Unknown Rx Menthol/Camphor [[place] Bazine 1 applicatio TP QID PRN #1 tube 08/04/20 Unknown Rx Ointment] Naproxen 500 mg PO BID PRN #30 tablet 08/04/20 Unknown Rx Allergies Allergy/AdvReac Type Severity Reaction Status Date / Time No Known Allergies Allergy Verified 12/20/19 10:46 ED Review of Systems ROS: Stated complaint: BACK PAIN Other details as noted in HPI Constitutional: denies: chills, fever Eyes: denies: eye pain, eye discharge, vision change ENT: denies: ear pain, throat pain Respiratory: denies: cough, shortness of breath, wheezing Cardiovascular: denies: chest pain, palpitations Endocrine: no symptoms reported Gastrointestinal: denies: abdominal pain, nausea, vomiting, diarrhea Genitourinary: denies: urgency, dysuria Musculoskeletal: back pain, arthralgia Skin: denies: rash, lesions Neurological: denies: headache, weakness, paresthesias Psychiatric: denies: anxiety, depression Hematological/Lymphatic: denies: easy bleeding, easy bruising ED Past Medical Hx - Past Medical History Hx Hypertension: Yes Hx Diabetes: Yes Additional medical history: left arm lac - Social History Substance Use Type: None - Medications Home Medications: Home Medications Medication Instructions Recorded Confirmed Last Taken Type Famotidine [Pepcid] 20 mg PO BID 7 Days #14 tablet 01/31/18 Unknown Rx Amoxicillin [Trimox CAP] 500 mg PO BID #20 capsule 12/10/19 Unknown Rx traMADoL [Ultram] 50 mg PO Q6HR PRN #12 tablet 12/10/19 Unknown Rx Cyclobenzaprine [Flexeril] 10 mg PO TID PRN #30 tablet 08/04/20 Unknown Rx Menthol/Camphor [[place] Bazine 1 applicatio TP QID PRN #1 tube 08/04/20 Unknown Rx Ointment] Naproxen 500 mg PO BID PRN #30 tablet 08/04/20 Unknown Rx ED Physical Exam - General Limitations: No Limitations General appearance: alert, in no apparent distress - Head Head exam: Present: atraumatic, normocephalic - Eye Eye exam: Present: normal appearance, EOMI Pupils: Present: normal accommodation - ENT ENT exam: Present: normal exam, mucous membranes moist - Neck Neck exam: Present: normal inspection, full ROM. Absent: tenderness - Respiratory Respiratory exam: Present: normal lung sounds bilaterally. Absent: respiratory distress, wheezes, stridor, chest wall tenderness - Cardiovascular Cardiovascular Exam: Present: regular rate, normal rhythm, normal heart sounds. Absent: bradycardia - GI/Abdominal GI/Abdominal exam: Present: soft, normal bowel sounds. Absent: distended, tenderness, guarding, rebound, rigid, bruit, hernia - Rectal Rectal exam: Present: deferred - Extremities Exam Extremities exam: Present: normal inspection, full ROM, normal capillary refill. Absent: tenderness, pedal edema - Back Exam Back exam: Present: normal inspection, full ROM, tenderness, muscle spasm, paraspinal tenderness. Absent: CVA tenderness (R), CVA tenderness (L), vertebral tenderness, rash noted - Expanded Back Exam Expanded Back exam: Absent: saddle anesthesia Back exam: Negative Straight Leg Raising: Left, Right - Neurological Exam Neurological exam: Present: alert, oriented X3, CN II-XII intact, normal gait, reflexes normal. Absent: motor sensory deficit - Expanded Neurological Exam Expanded Neurological exam: Present: protecting the airway. Absent: other Patient oriented to: Present: person, place, time Speech: Present: fluid speech Cerebellar function: Finger to Nose: Normal, Heel to [place]: Normal Upper motor neuron: Vini Neglect: Normal, Pronator Drift: Normal Sensory exam: Upper Extremity Light Touch: Normal, Upper Extremity Temperature: Normal, Lower Extremity Light Touch: Normal, Lower Extremity Temperature: Normal Motor strength exam: RUE: 5, LUE: 5, RLE: 5, LLE: 5 DTR: ankle (R): 2+, ankle (L): 2+ Best Eye Response ([place]): (4) open spontaneously Best Motor Response ([place]): (6) obeys commands Best Verbal Response ([place]): (5) oriented [place] Total: 15 - Psychiatric Psychiatric exam: Present: normal affect, normal mood - Skin Skin exam: Present: warm, dry, intact, normal color. Absent: rash ED Course Vital Signs 08/04/20 15:16 Temperature 98.1 F Pulse Rate 111 H Respiratory 18 Rate Blood Pressure 145/91 O2 Sat by Pulse 95 Oximetry ED Medical Decision Making - Lab Data Result diagrams: 08/04/20 18:16 08/04/20 18:16 Critical care attestation.: If time is entered above; I have spent that time in minutes in the direct care of this critically ill patient, excluding procedure time. ED Disposition Clinical Impression: Low back strain Qualifiers: Encounter type: initial encounter Qualified Code(s): S39.012A - Strain of muscle, fascia and tendon of lower back, initial encounter Disposition: TO HOME OR SELFCARE Is pt being admited?: No Does the pt Need Aspirin: No Condition: Stable Instructions: Lumbar Sprain, Low Back Sprain or Strain Rehab-SportsMed Prescriptions: Cyclobenzaprine [Flexeril] 10 mg PO TID PRN #30 tablet PRN Reason: Muscle Spasm Naproxen 500 mg PO BID PRN #30 tablet PRN Reason: pain Menthol/Camphor [[place] Bazine Ointment] 1 applicatio TP QID PRN #1 tube PRN Reason: pain Referrals: DENTON YANEZ MD [Staff Physician] - 3-5 Days Forms: Work/School Release Form(ED) Time of Disposition: 00:09
[2020-08-05 00:22] VITALS: BP 149/95
== END 2020-08-05 00:20 | disposition home or self-care (01) ==
LOC: ED 14:08
DX: S39.012A Strain of muscle, fascia and tendon of lower back, initial encounter (principal); I10 Essential (primary) hypertension; E11.9 Type 2 diabetes mellitus without complications; Z79.899 Other long term (current) drug therapy; X58.XXXA Exposure to other specified factors, initial encounter; Y93.89 Activity, other specified; Y92.89 Other specified places as the place of occurrence of the external cause; Y99.8 Other external cause status
CPT/HCPCS: 36415; 80053; 81001; 85025; 99283

== ENCOUNTER 2021-09-11 15:36 | Emergency (ER) | payer MEDICARE ==
[2021-09-11 16:06] VITALS: BP 158/93
[2021-09-11] MEDS ORDERED: KETOROLAC 30 MG/1 ML INJ IM ONE (16:49)
[2021-09-11] MEDS ORDERED: ACETAMINOPHEN 325 MG TAB PO ONE (16:49)
--- NOTE | 2021-09-11 16:49 | Emergency Department Report ---
ED General Adult HPI - General Chief complaint: Earache Stated complaint: EAR & JAW PAIN PUI?: No Time Seen by Provider: 09/11/21 16:19 Source: patient Mode of arrival: Ambulatory Limitations: No Limitations - History of Present Illness Initial comments: The patient was evaluated in the emergency department for symptoms described in the history of present illness. He/she was evaluated in the context of the global COVID-19 pandemic, which necessitated consideration that the patient might be at risk for infection with the virus that causes COVID-19. Institutional protocols and algorithms that pertain to the evaluation of patients at risk for COVID-19 are in a state of rapid change based on information released by regulatory bodies including the CDC and federal and state organizations. These policies and algorithms were followed during the patient's care in the emergency department. Please note that these policies, procedures and recommendations changed on a rapid basis. The patient is a 50-year-old gentleman, with a history of tobacco use, who presents to the ER with a few days to a week and a half of right ear pain, and right-sided jaw pain. No trauma, no loss of taste or smell, no tinnitus, no vertigo. He does occasionally smoke. His pain increases with palpation and range of motion of the right jaw. It decreases with rest. He does not think he grinds his teeth at night but is not certain. He saw a dentist yesterday, and he advises that the dentist evaluation he had yesterday indicated no dental source of his pain or discomfort. He denies loss of auditory acuity. He denies additional injuries or complaints. He does have relief with [id number] pain medication. -: Gradual, days(s) Location: mouth Severity scale (0 -10): 5 Quality: aching Consistency: constant Improves with: medication, rest Worsens with: movement Associated Symptoms: denies other symptoms - Related Data Previous Rx's Medication Instructions Recorded Last Taken Type Famotidine [Pepcid] 20 mg PO BID 7 Days #14 tablet 01/31/18 Unknown Rx Menthol/Camphor [[place] 1 applicatio TP QID PRN #1 tube 08/04/20 Unknown Rx Ointment] Acetaminophen [Non-Aspirin Extra 650 mg PO Q6HR PRN #30 tablet 09/11/21 Unknown Rx Strength] Ibuprofen [Motrin] 600 mg PO Q8H PRN #30 tablet 09/11/21 Unknown Rx Allergies Allergy/AdvReac Type Severity Reaction Status Date / Time No Known Allergies Allergy Verified 12/20/19 10:46 ED Review of Systems ROS: Stated complaint: EAR & JAW PAIN Other details as noted in HPI Constitutional: denies: fever Eyes: denies: eye discharge, vision change ENT: ear pain. denies: throat pain, dental pain, hearing loss, epistaxis, congestion Respiratory: denies: cough Cardiovascular: denies: chest pain Gastrointestinal: denies: abdominal pain Neurological: denies: weakness ED Past Medical Hx - Past Medical History Hx Hypertension: Yes Hx Diabetes: Yes Additional medical history: left arm lac - Social History Substance Use Type: None - Medications Home Medications: Home Medications Medication Instructions Recorded Confirmed Last Taken Type Famotidine [Pepcid] 20 mg PO BID 7 Days #14 tablet 01/31/18 Unknown Rx Menthol/Camphor [[place] 1 applicatio TP QID PRN #1 tube 08/04/20 Unknown Rx Ointment] Acetaminophen [Non-Aspirin Extra 650 mg PO Q6HR PRN #30 tablet 09/11/21 Unknown Rx Strength] Ibuprofen [Motrin] 600 mg PO Q8H PRN #30 tablet 09/11/21 Unknown Rx ED Physical Exam - General Limitations: No Limitations General appearance: alert, in no apparent distress - Head Head exam: Present: atraumatic, normocephalic - Eye Eye exam: Present: normal appearance, EOMI. Absent: nystagmus - ENT ENT exam: Present: normal exam (There is poor dentition. There is no dental tenderness to percussion. There is no stridor.), normal orophraynx, mucous membranes moist, TM's normal bilaterally, normal external ear exam, other (There is right-sided point tenderness to the TMJ.) - Neck Neck exam: Present: normal inspection, full ROM. Absent: tenderness - Respiratory Respiratory exam: Present: normal lung sounds bilaterally. Absent: respiratory distress, wheezes, rales, rhonchi, stridor, decreased breath sounds - Cardiovascular Cardiovascular Exam: Present: regular rate, normal rhythm, normal heart sounds. Absent: bradycardia, tachycardia, irregular rhythm, systolic murmur, diastolic murmur, rubs, gallop - GI/Abdominal GI/Abdominal exam: Present: soft. Absent: distended, tenderness, guarding, rebound, rigid, pulsatile mass - Rectal Rectal exam: Present: deferred - Extremities Exam Extremities exam: Present: normal inspection, full ROM, other (2+ pulses noted in the bilateral upper and lower extremities. There is no palpable cord. negative Homans sign. Muscular compartments are soft. The pelvis is stable.). Absent: pedal edema, calf tenderness - Back Exam Back exam: Present: normal inspection, full ROM. Absent: tenderness, CVA tenderness (R), CVA tenderness (L), paraspinal tenderness, vertebral tenderness - Neurological Exam Neurological exam: Present: alert, oriented X3, normal gait, other (No facial droop. Tongue midline. Extraocular movements intact bilaterally. Facial sensation intact to light touch in V1, V2, V3 distribution bilaterally. 5 and a 5 strength in 4 extremities. Sensation intact to light touch in 4 extremities.). Absent: motor sensory deficit - Psychiatric Psychiatric exam: Present: normal affect, normal mood - Skin Skin exam: Present: warm, dry, intact, normal color. Absent: rash ED Course Vital Signs 09/11/21 16:03 Temperature 98.2 F Pulse Rate 100 H Respiratory 20 Rate Blood Pressure 158/93 [Right] O2 Sat by Pulse 98 Oximetry ED Medical Decision Making - Lab Data Vital Signs 09/11/21 16:03 Temperature 98.2 F Pulse Rate 100 H Respiratory 20 Rate Blood Pressure 158/93 [Right] O2 Sat by Pulse 98 Oximetry - Medical Decision Making Differential diagnosis, including but not limited to: Trigeminal neuralgia, TMJ Assessment and plan: 50-year-old gentleman, who was afebrile, with reassuring vital signs, with resolved tachycardia, with point tenderness to the right TMJ, with clear tympanic membranes bilaterally, no evidence of airway compromise, and a benign and otherwise unremarkable physical examination. He does not appear to have an emergent medical condition at this time. He reports that he saw a dentist yesterday, who cleared him from an odontogenic perspective. Patient counseled on natural history of TMJ. He may take Tylenol, Motrin, and follow-up with an outpatient oral surgeon or speech therapist for evaluation for TMJ, and outpatient therapy. Discussed this with the patient. Return precautions reviewed. Critical care attestation.: If time is entered above; I have spent that time in minutes in the direct care of this critically ill patient, excluding procedure time. ED Disposition Clinical Impression: Jaw pain Disposition: HOME / SELF CARE / HOMELESS Is pt being admited?: No Does the pt Need Aspirin: No Condition: Good Instructions: Temporomandibular Joint Syndrome Additional Instructions: Please take the prescribed pain medications as needed and directed. Recommend follow-up with the speech pathologist, or oral surgeon to determine presence or absence of TMJ. Patient should abstain from tobacco consumption. Recommend follow-up with an oral surgeon pathologist within the next 2 weeks. Patient may follow-up with [facility] if he so desires [facility] [address] [place] [address] [address] Monday: 11 AM - 4:30 PM Monday: 8 AM - 4:30 PM Every other : 8 AM - 4:30 PM Every other Monday: 8 AM - 4:30 PM (Main) (Appointments) Please return to the emergency room right away with new pain, worsened pain, migration of pain, projectile vomiting, change in mental status, confusion, inability tolerate liquid feeds, new, worsened or different symptoms not present on the initial emergency room evaluation Prescriptions: Ibuprofen [Motrin] 600 mg PO Q8H PRN #30 tablet PRN Reason: Pain Acetaminophen [Non-Aspirin Extra Strength] 650 mg PO Q6HR PRN #30 tablet PRN Reason: Pain , Severe (7-10) Referrals: [facility] [Outside] - 3-5 Days
== END 2021-09-11 17:43 | disposition home or self-care (01) ==
LOC: ED 15:36
DX: R68.84 Jaw pain (principal); I10 Essential (primary) hypertension; E11.9 Type 2 diabetes mellitus without complications; Z79.899 Other long term (current) drug therapy
CPT/HCPCS: 96372; 99282; J1885